=== PATIENT | female | born 1965 | race Caucasian/White ===

== ENCOUNTER → 2016-12-06 | Outpatient (CLI) | payer OTHER | LOC: FIMAGING 15:42 | PROVIDERS: ATTEND Obstetrics & Gynecology | DX: Z12.31 Encounter for screening mammogram for malignant neoplasm of breast (principal) | CPT/HCPCS: G0202 ==

== ENCOUNTER → 2017-06-09 | Outpatient (CLI) | payer OTHER | LOC: BMCIMAGING 07:17 | PROVIDERS: ATTEND Internal Medicine | DX: K80.20 Calculus of gallbladder without cholecystitis without obstruction (principal); K76.0 Fatty (change of) liver, not elsewhere classified ==

== ENCOUNTER 2017-07-06 20:21 | Emergency (ER) | payer OTHER ==
[2017-07-06] MEDS ORDERED: HYDROmorphONE/DILAUDID 1 MG/ML INJ IVP ONE ×2 (21:19→21:54)
[2017-07-06] MEDS ORDERED: NS 1,000 ML IV ONE (21:19)
[2017-07-06] MEDS ORDERED: PROMETHAZINE HCL 25 MG/ML INJ IVP ONE (21:19)
--- NOTE | 2017-07-06 21:20 | EDPHY ---
H & P Time Seen by Provider: 07/06/17 21:09 HPI/ROS: CHIEF COMPLAINT: Abdominal pain HISTORY OF PRESENT ILLNESS: Patient had laparoscopic cholecystectomy for gallstones on ultrasound by Dr. Willis Jama at [facility] on Tuesday. She had been having pain but also having bowel movements, was improved as of yesterday with only ibuprofen. Today around 4 5:00 p.m. Pain started getting worse and was not better with ibuprofen and oral narcotics. Describes on the right side mid abdomen and radiating up to her right upper quadrant and back as well as to the lower abdomen. Severe, not better worse with anything. Associated with fever yesterday. REVIEW OF SYSTEMS: Eye: no change in vision ENT: no sore throat Cardiac: no chest pain or syncope Pulmonary: no cough or SOB Abdomen: HPI Musculoskeletal: no back pain Skin: no rash Neuro: no headache Constitutional: temp 100.7 yesterday : no urinary symptoms; specifically no frequency or dysuria A comprehensive 10 point review of systems is otherwise negative aside from elements mentioned in the history of present illness. PAST MEDICAL HISTORY: Cholecystectomy Social history: General Appearance: Alert and conversant, cooperative. Eyes: No scleral icterus. ENT, Mouth: Normal mucous membranes. Respiratory: Normal respiratory effort, breath sounds equal, lungs are clear to auscultation. Cardiovascular: Regular rate and rhythm. Gastrointestinal: Right abdominal tenderness without rebound or guarding both upper and lower. Incisions are clean dry and intact. Neurological: Alert, face symmetric, normal motor and sensory in extremities. Skin: Warm and dry, no rashes. Musculoskeletal: No peripheral edema. Psychiatric: Not agitated. Emergency Department course/MDM: 2136: Patient received 1 mg IV Dilaudid normal saline 1 L, discussed with Dr. Sandhu for Dr. Jama. CT abdomen discussed and consented ordered with creatinine 0.7. 2238: Results discussed with patient, she received a 2nd dose of IV Dilaudid in the pain is radiating to her right shoulder. I think that is likely referred pain from postoperative right upper quadrant discomfort. She is not able to go home because her pain control is requiring IV narcotics. Will discuss with Phoebe. Her surgery was outpatient elective at [facility] but she lives in [place] and does not want to be transferred there. Possibly boarding in ED overnight. Smoking Status: Never smoked Constitutional: Initial Vital Signs Temperature (C) 37.1 C 02/14/18 20:27 Heart Rate 73 07/06/17 20:27 Respiratory Rate 20 07/06/17 20:27 Blood Pressure 167/103 H 07/06/17 20:27 O2 Sat (%) 96 07/06/17 20:27 O2 Delivery Mode Room Air Allergies/Adverse Reactions: Sulfa (Sulfonamide Antibiotics) Allergy (Verified 07/06/17 20:26) Home Medications: Medication Instructions Recorded Hydrocodone-Acetamin 5-325 mg 07/06/17 Lexapro 07/06/17 Synthroid 07/06/17 Medical Decision Making - Diagnostics EKG Interpretation: 12-lead EKG interpreted by me; official reading is in trace master. My interpretation is sinus rhythm rate 66 with no ischemic changes. Imaging Results: Imaging Impressions Abdomen CT 07/06/17 21:37 Impression: 1. No organized fluid collection/abscess, bowel obstruction, or adynamic ileus. 2. Minimal fluid along the surface of the liver and the pelvis may represent postoperative blood products or bile leak. Please correlate with LFTs. 3. No evidence of retained common bile duct stone. 4. Bilateral nephrolithiasis. No obstructing ureteral calculi. Findings discussed with Emergency Department physician, ILANA GONZALEZ at 2017 22:45. Postop findings per Helgans, no abscess or other reason for pain on CT, 2235. No evidence of retained stone or pancreatitis or hydronephrosis. Imaging: I viewed and interpreted images myself Differential Diagnosis: Differential considered including but not limited to bile leak, postoperative abscess, ureteral colic, intestinal perforation, abscess, retained common duct stone, UTI.. Consult/Admit Bed Type: [facility] at 2245 - Data Points Laboratory Results: Laboratory Results 07/06/17 21:23 07/06/17 21:23 07/06/17 07/06/17 07/06/17 21:26 21:23 21:23 WBC 6.76 10^3/uL 10^3/uL (3.80-9.50) RBC 4.17 10^6/uL L 10^6/uL (4.18-5.33) Hgb 13.2 g/dL g/dL (12.6-16.3) POC Hgb 13.6 gm/dL gm/dL (12.6-16.3) Hct 38.9 % % (38.0-47.0) POC Hct 40 % % (38-47) MCV 93.3 fL fL (81.5-99.8) MCH 31.7 pg pg (27.9-34.1) MCHC 33.9 g/dL g/dL (32.4-36.7) RDW 13.2 % % (11.5-15.2) Plt Count 320 10^3/uL 10^3/uL (150-400) MPV 9.1 fL fL (8.7-11.7) Neut % (Auto) 57.2 % % (39.3-74.2) Lymph % (Auto) 28.8 % % (15.0-45.0) [place] % (Auto) 5.2 % % (4.5-13.0) Eos % (Auto) 7.5 % % (0.6-7.6) Baso % (Auto) 0.9 % % (0.3-1.7) Nucleat RBC Rel Count 0.0 % % (0.0-0.2) Absolute Neuts (auto) 3.86 10^3/uL 10^3/uL (1.70-6.50) Absolute Lymphs (auto) 1.95 10^3/uL 10^3/uL (1.00-3.00) Absolute Monos (auto) 0.35 10^3/uL 10^3/uL (0.30-0.80) Absolute Eos (auto) 0.51 10^3/uL H 10^3/uL (0.03-0.40) Absolute Basos (auto) 0.06 10^3/uL 10^3/uL (0.02-0.10) Absolute Nucleated RBC 0.00 10^3/uL 10^3/uL (0-0.01) Immature Gran % 0.4 % % (0.0-1.1) Immature Gran # 0.03 10^3/uL 10^3/uL (0.00-0.10) POC Sodium 141 mEq/L mEq/L (135-145) Sodium 140 mEq/L mEq/L (135-145) POC Potassium 3.3 mEq/L mEq/L (3.3-5.0) Potassium 3.6 mEq/L mEq/L (3.5-5.2) POC Chloride 104 mEq/L mEq/L (97-110) Chloride 102 mEq/L mEq/L (97-110) Carbon Dioxide 26 mEq/l mEq/l (22-31) Anion Gap 12 mEq/L mEq/L (8-16) POC BUN 7 mg/dL mg/dL (7-23) BUN 8 mg/dL mg/dL (7-23) Creatinine 0.7 mg/dL mg/dL (0.6-1.0) POC Creatinine 0.7 mg/dL mg/dL (0.6-1.0) Estimated GFR > 60 Glucose 102 mg/dL H mg/dL (70-100) POC Glucose 107 mg/dL H mg/dL (70-100) Calcium 9.7 mg/dL mg/dL (8.5-10.4) Total Bilirubin 0.6 mg/dL mg/dL (0.1-1.4) Conjugated Bilirubin 0.4 mg/dL mg/dL (0.0-0.5) Unconjugated Bilirubin 0.2 mg/dL mg/dL (0.0-1.1) AST 30 IU/L IU/L (14-46) ALT 61 IU/L H IU/L (9-52) Alkaline Phosphatase 59 IU/L IU/L (38-126) Total Protein 7.0 g/dL g/dL (6.3-8.2) Albumin 4.2 g/dL g/dL (3.5-5.0) Lipase 141 IU/L IU/L (23-300) Medications Given: Discontinued Medications Hydromorphone HCl (Dilaudid) 1 mg IVP EDNOW ONE Stop: 07/06/17 21:20 Last Admin: 07/06/17 21:29 Dose: 1 mg Hydromorphone HCl (Dilaudid) 1 mg IVP EDNOW ONE Stop: 07/06/17 21:55 Last Admin: 07/06/17 21:56 Dose: 1 mg Sodium Chloride (Ns) 1,000 mls @ 0 mls/hr IV EDNOW ONE; Wide Open PRN Reason: Protocol Stop: 07/06/17 21:20 Last Admin: 07/06/17 21:27 Dose: 1,000 mls Ketorolac Tromethamine (Toradol) 30 mg IVP EDNOW ONE Stop: 07/06/17 22:51 Last Admin: 07/06/17 23:23 Dose: 30 mg Promethazine HCl (Phenergan) 12.5 mg IVP EDNOW ONE Stop: 07/06/17 21:20 Last Admin: 07/06/17 21:30 Dose: 12.5 mg Point of Care Test Results: 07/06/17 21:26 POC Sodium 141 POC Potassium 3.3 POC Chloride 104 POC BUN 7 POC Creatinine 0.7 POC Glucose 107 H Departure - Departure Disposition: [facility] Inpatient Acute Clinical Impression: Abdominal pain Qualifiers: Abdominal location: right upper quadrant Qualified Code(s): R10.11 - Right upper quadrant pain Condition: Good
[2017-07-06 21:38] LABS: PLATELET COUNT 320 10^3/uL (150-400)
[2017-07-06] MEDS ORDERED: HYDROmorphONE/DILAUDID 1 MG/ML INJ ONE (21:54)
[2017-07-06] MEDS ORDERED: IOPAMIDOL (ISOVUE-300) 100 ML BTL ONE (22:12)
[2017-07-06 22:47] VITALS: RESP 16
[2017-07-06] MEDS ORDERED: KETOROLAC 30 MG/1 ML SDV IVP ONE (22:50)
--- NOTE | 2017-07-06 23:06 | CPEKG ---
Heart Rate: 66 RR Interval: 909 P-R Interval: 164 QRSD Interval: 86 QT Interval: 420 QTC Interval: 441 P Burke: 47 QRS Burke: 20 T Wave Burke: 16 EKG Severity - NORMAL ECG - EKG Impression: SINUS RHYTHM Electronically Signed By: Jef Lees 06-Jul-2017 23:06:04
[2017-07-07] MEDS ORDERED: KETOROLAC 30 MG/1 ML SDV IVP ONE (06:31)
[2017-07-07 06:56] VITALS: BP 137/85; PULSE 71; TEMP 97.9; O2SAT 94
--- NOTE | 2017-07-07 07:32 | GCON ---
[f rep st] CONSULTATION A 51-year-old patient with known history of biliary colic who presented last week for elective cholec ystectomy with cholangiogram. She had an elevation of transaminases at the time, and there were no s igns of any intrahepatic or extrahepatic filling defects in the biliary system. The patient was seen here in the emergency room for acute onset of right upper quadrant abdominal pain radiating to her b ack and her right flank. The patient does have a history of kidney stones. CT scan was negative for any renal pathology including hydroureter or hydronephrosis. The patient was given 2 rounds of Dila udid without relief. Toradol did help with her pain. She was able to sleep. She currently has had recurrence of her pain after several hours. Right now, she has had recurrence of the right upper medardo drant abdominal pain, now radiating to her shoulders. She is able to tolerate food. She had been fi ne from Tuesday until evening. Laboratory studies, and past medical history, surgeries are reviewed. VITAL SIGNS: She has a temperature of 36.7, heart rate of 85, blood pressure 112/72, with a respirat ory rate of 16, saturating 92% on room air. HEENT: Sclerae anicteric. Oropharynx is slightly dry. LUNGS: Clear. HEART: Regular heart tones. ABDOMEN: Soft. It is minimally tender in the right u pper quadrant. She does have tenderness with deep inspiration, but no true Benitez's. She has mild C VA tenderness on the right. Incisions are clean, dry, and intact. EXTREMITIES: Without edema. No rashes. AST/ALT were ordered; AST is 30, ALT is 61. Alkaline phosphatase is 59. Bilirubin 0.4. All other n umbers are within normal limits. White count is 6. CT scan is personally reviewed on PACS. There i s no sign of any acute intraabdominal problem. I have reviewed the images personally on PACS and do not feel that she has any acute issues. After exam and review of all the data, my feeling is patient has postsurgical pain. Will use Motrin 800 mg t.i.d. as our analgesia of choice. The patient will follow up in the office, as mentioned. /[id number]/MODL
== END 2017-07-07 06:56 | disposition home or self-care (01) ==
LOC: UNDOADMOB 22:46
DX: R10.11 Right upper quadrant pain (principal); Z98.890 Other specified postprocedural states
CPT/HCPCS: 82947-QW; 96374; J1170; J1885; J2550; Q9967

== ENCOUNTER → 2018-01-26 | Outpatient (CLI) | payer OTHER | LOC: FIMAGING 16:12 | PROVIDERS: ATTEND Internal Medicine | DX: Z12.31 Encounter for screening mammogram for malignant neoplasm of breast (principal); Z80.3 Family history of malignant neoplasm of breast ==